=== PATIENT | female | born 1935 | race Caucasian/White ===

== ENCOUNTER → 2017-06-20 | Outpatient (CLI) | payer MEDICARE ==
--- NOTE | 2017-06-20 11:20 | KCIC ---
Bone mineral density exam History: Takes Fosamax and thyroid medication, takes calcium supplement, postmenopausal Comparison: None Findings: Bone mineral density examination utilizing DEXA was performed. Left hip bone mineral density of 0.867 g/cm2 corresponds with a T score -0.6, Z score 1.5. The bone mineral density of the lumbar spine was 1.307 g/cm2 which corresponds with a T-score of 2.4, Z score 5.1 By World [employer] on Osteoporosis criteria, a T score of 0 to-1 SD is considered to be within normal limits. A T score of -1 to -2.5 SD is considered osteopenia. A T score less than -2.5 SD is considered osteoporosis Impression: 1. There is normal bone density of the lumbar spine and the left hip. Electronically signed by: Murali Voss MD (06/20/2017 11:16 AM) [facility]
== END | disposition home or self-care (01) ==
LOC: KCIC DEXA 09:25
PROVIDERS: ATTEND Family Medicine
DX: M85.89 Other specified disorders of bone density and structure, multiple sites (principal)
CPT/HCPCS: 77080

== ENCOUNTER → 2017-11-16 | Outpatient (CLI) | payer OTHER, MEDICARE | END | disposition home or self-care (01) | LOC: KCIC US 07:45 | DX: K82.8 Other specified diseases of gallbladder (principal); I70.0 Atherosclerosis of aorta; K57.92 Diverticulitis of intestine, part unspecified, without perforation or abscess without bleeding; R14.0 Abdominal distension (gaseous) | CPT/HCPCS: 76700 ==

== ENCOUNTER → 2018-01-21 | Outpatient (CLI) | payer OTHER, MEDICARE | END | disposition home or self-care (01) | LOC: ECHO 08:56 | DX: I11.9 Hypertensive heart disease without heart failure (principal); I27.20 Pulmonary hypertension, unspecified; I36.1 Nonrheumatic tricuspid (valve) insufficiency | CPT/HCPCS: 93306 ==

== ENCOUNTER → 2018-07-29 | Outpatient (CLI) | payer OTHER ==
--- NOTE | 2018-07-29 15:56 | KCIC ---
Left knee, 3 views, 07/29/2018: HISTORY: Knee pain There is minimal marginal spurring at the knee joint and at the patellofemoral articulation. No fracture or dislocation is identified. No large joint effusion is evident. IMPRESSION: 1. Mild degenerative change. 2. No acute bony abnormality is detected. Electronically signed by: Vinicius Ennis MD (07/29/2018 3:53 PM) [facility]
== END | disposition home or self-care (01) ==
LOC: KCIC 14:22
PROVIDERS: ATTEND Family Medicine
DX: M17.12 Unilateral primary osteoarthritis, left knee (principal); M76.892 Other specified enthesopathies of left lower limb, excluding foot
CPT/HCPCS: 73562

== ENCOUNTER → 2020-02-23 | Outpatient (CLI) | payer MEDICARE ==
--- NOTE | 2020-02-23 12:45 | CARD ---
MR#: [id number] Date of Study: 02/23/2020 Ordering Physician: GLORIA JENKINS, Referring Physician: GLORIA JENKINS Tech: Evy Schroeder RDCS APPROVED REPORT EXAM: Two-dimensional and M-mode echocardiogram with Doppler and color Doppler. Other Information Quality : Good Rhythm : PVC's INDICATION Hypertension/HCVD 2D DIMENSIONS RVDd3.0 (2.9-3.5cm)Left Atrium(2D)3.2 (1.6-4.0cm) IVSd0.8 (0.7-1.1cm)Aortic Root(2D)2.5 (2.0-3.7cm) LVDd4.4 (3.9-5.9cm)LVOT Diameter2.0 (1.8-2.4cm) PWd0.8 (0.7-1.1cm)LVDs2.4 (2.5-4.0cm) FS (%) 30.0 %SV67.1 ml LVEF(%)60.0 (>50%) Aortic Valve AoV Peak Esteban.173.5cm/sAoV VTI32.5cm AO Peak GR.12.0mmHgLVOT Peak Esteban.128.9cm/s AO Mean GR.6mmHgAVA (VMAX)2.26cm2 MERY (VTI)2.60cm2 Mitral Valve MV E Akyfvtnf43.4cm/sMV DECEL RDFI523ji MV A Lzujihml127.1cm/sE/A Ratio0.8 Tricuspid Valve TR P. Ekiytudo240lo/sRAP JEASKYFC4szLy TR Peak Gr.14kaWxKZMI70daZu Pulmonary Vein S1 Jifgcvcs00.5cm/sD2 Xdgvrhov94.3cm/s LEFT VENTRICLE The left ventricle is normal size. There is normal left ventricular wall thickness. The left ventricu lar systolic function is normal. The Ejection Fraction is 55-60%. There is normal LV segmental wall m otion. Transmitral Doppler flow pattern is Grade I-abnormal relaxation pattern. RIGHT VENTRICLE The right ventricle is normal size. The right ventricular systolic function is normal. ATRIA The left atrium size is normal. The right atrium size is normal. The interatrial septum is intact wit h no evidence for an atrial septal defect or patent foramen ovale as noted on 2-D or Doppler imaging. AORTIC VALVE The aortic valve is calcified but opens well. Doppler and Color Flow revealed mild aortic regurgitati on. There is no significant aortic valvular stenosis. MITRAL VALVE The mitral valve is calcified but opens well. There is no evidence of mitral valve prolapse. There is no mitral valve stenosis. Doppler and Color-flow revealed mild mitral regurgitation. TRICUSPID VALVE The tricuspid valve is normal in structure and function. Doppler and Color Flow revealed mild tricusp id regurgitation. There is mild pulmonary hypertension. The PA pressure was estimated at 36 mmHg. The re is no tricuspid valve stenosis. PULMONIC VALVE The pulmonic valve is not well visualized. Doppler and Color Flow revealed mild pulmonic valvular reg urgitation. There is no pulmonic valvular stenosis. GREAT VESSELS The aortic root is normal in size. The ascending aorta is normal in size. The IVC is normal in size a nd collapses >50% with inspiration. PERICARDIAL EFFUSION There is no evidence of significant pericardial effusion. Critical Notification Critical Value: No <Conclusion> The left ventricular systolic function is normal. The Ejection Fraction is 55-60%. There is normal LV segmental wall motion. Transmitral Doppler flow pattern is Grade I-abnormal relaxation pattern. Mild aortic regurgitation. Mild mitral regurgitation. Mild tricuspid regurgitation. There is mild pulmonary hypertension. The PA pressure was estimated at 36 mmHg. There is no evidence of significant pericardial effusion. Signed by : Gloria Jenkins, Electronically Approved : 02/23/2020 12:45:09
== END | disposition home or self-care (01) ==
LOC: ECHO 09:42
PROVIDERS: ATTEND Internal Medicine Cardiovascular Disease
DX: I08.3 Combined rheumatic disorders of mitral, aortic and tricuspid valves (principal); I27.20 Pulmonary hypertension, unspecified; I10 Essential (primary) hypertension
CPT/HCPCS: 93306

== ENCOUNTER → 2020-03-29 | Outpatient (CLI) | payer MEDICARE ==
[~2020-03-29] MED LIST: REGADENOSON 0.4 MG/5 ML DISP.SYRIN. IV ONE
--- NOTE | 2020-03-29 13:31 | RAD ---
MR#: [id number] Date of Study: 03/29/2020 Ordering Physician: GLORIA JENKINS, Referring Physician: ADRYAN CODY Tech: RT Mallory (R) (N) APPROVED REPORT Test Type: Pharmacological Stress Nurse/Tech: KERI Owusu Test Indications: Dyspnea on Exertion Cardiac History: HTN, See Electronic Medical Record Medications: See Electronic Medical Record Medical History: See Electronic Medical Record Resting ECG: SR w/BBB Resting Heart Rate: 65 bpm Resting Blood Pressure: 132/63mmHg Pretest Chest Pain: No chest pain Nurse/Tech Notes S1,S2, lungs CTA, denied chest pain/SOA at this time. Consent: The procedure was explained to the patient in lay terms. Informed consent was witnessed. Neil eout was entered into [employer]. History and Stress Test performed by ADRYAN BrooksTCCynthia, ARRT (R) (N) Pharm. Details Pharmacologic stress testing was performed using 0.4mg per 5ml of regadenoson given intravenously ove r 7-10 seconds. Stress Symptoms Pt c/o "slight pressure" during exam, symptoms resolved after about a minute. VSS POST EXERCISE Reason for Termination: Infusion complete Max HR: 100 bpm Max Blood Pressure: 137/60mmHg Blood Pressure response to exercise: Normal blood pressure response during stress. Heart Rate response to exercise: Normal heart rate response during stress Chest Pain: No. INTERPRETATION Stress EKG Conclusion: The resting EKG shows a sinus rhythm with a right bundle branch block. The stress EKG shows no significant changes from baseline. No EKG evidence of stress-induced ischemia. Imaging Protocol IMAGE PROTOCOL: Rest Tc-99m/stress Tc-99m 1 day Rest: Stress: Viability: Radiopharm.Tc99m PmypmcmciKv06m Sestamibi Dose10.7mCi 32mCi Duration 15min. 10min. Img Date 03/29/2020 03/29/2020 Inj-Img Jnny60mjx. 60min. Rest Admin Site:IV - Left AntecubitalAdministrator:RT Ed TejadaR)(N) Stress Admin Site: IV - Left AntecubitalAdministrator: Tawnya Davis, NMTCB, ARRT (R)(N) STRESS DATA End Diast. Vol.52.0mlAv. Heart Rate78.0bpm End Syst. Vol.3.0mlCO Index BSA0.0L/min Myocardial Mass97.0gEject. Kqmgoyyy91.0% Stress Rates Pk. Fill Rate3.37EDV/secLVtime Pk. Fill 102.65msec Pk. Empty Rate4.66ESV/secLVtime Pk. Rkszt456.65msec 10/24 Pk. Fill2.34EDV/sec Stress Scores Regional WT0.00Summed WT0.00 Regional WM0.00Summed WM0.00 LV Perfusion The stress scans showed no significant defects. The rest scans showed no significant defects. Nuclear imaging shows no reversible ischemia or infarct. Wall Motion Left ventricular systolic function is normal with an ejection fraction of greater than 70%. LV Perf. Quant 17 Seg. SSS0.00 17 Seg. SRS1.00 17 Seg. SDS0.00 Stress Defect Extent (% LAD)0.00Rest Defect Extent (% LAD)2.50Rev. Defect Extent (% LAD)0.00 Stress Defect Extent (% LCX) 0.00Rest Defect Extent (% LCX)2.50Rev. Defect Extent (% LCX)0.00 Stress Defect Extent (% RCA)0.00Rest Defect Extent (% RCA)0.00Rev. Defect Extent (% RCA)0.00 Stress Defect Extent (% DARIEL)0.00Rest Defect Extent (% DARIEL)3.90Rev. Defect Extent (% DARIEL)0.00 Conclusion 1. No EKG evidence of stress-induced ischemia. 2. Nuclear imaging shows no reversible ischemia or infarct. 3. Normal left ventricular systolic function with an ejection fraction of greater than 70%. 4. Low risk test. Signed by : Billy Dowling MD Electronically Approved : 03/29/2020 13:30:35
== END | disposition home or self-care (01) ==
LOC: NM 09:06
PROVIDERS: ATTEND Internal Medicine Cardiovascular Disease
DX: R06.09 Other forms of dyspnea (principal)
CPT/HCPCS: 78452; 93017; A9500; J2785

== ENCOUNTER → 2020-04-26 | Outpatient (CLI) | payer MEDICARE ==
[~2020-04-26] MED LIST changes: +IOHEXOL 240 MG/ML 50ML VIAL. PO ONE; +IOHEXOL 300 MG/ML 100ML VIAL. IV ONE; -REGADENOSON 0.4 MG/5 ML DISP.SYRIN. IV ONE
--- NOTE | 2020-04-26 14:55 | KCIC ---
CT scan of the abdomen and pelvis with contrast 04/26/2020 CLINICAL HISTORY: Abdominal pain. TECHNIQUE: After the oral and intravenous administration of contrast, contiguous, 5 mm axial sections were obtained through the abdomen and pelvis. 67 cc Omnipaque 300 were administered intravenously during this examination. One or more of the following individualized dose reduction techniques were utilized for this study: 1. Automated exposure control. 2. Adjustment of the mA and/or kV according to patient size. 3. Use of iterative reconstruction technique. FINDINGS: Images through the lung bases demonstrate mild to moderate cardiomegaly. Minimal dependent subsegmental atelectasis is seen bilaterally. The liver, spleen, pancreas, adrenal glands and kidneys are within normal limits. Atherosclerotic calcification of the abdominal aorta is seen. The abdominal aorta tapers normally. The gallbladder is well-distended. No free fluid or free air is seen within the abdomen. Air and stool are seen throughout the colon. There is no evidence of bowel obstruction. The appendix is well-visualized and is within normal limits. Multiple diverticula are seen involving the descending and sigmoid colon. No inflammatory changes are seen in the adjacent fat. Images through pelvis demonstrate the urinary bladder to be contracted. Calcifications are seen within the pelvis consistent with phleboliths. An anastomosis is seen involving the sigmoid colon with the rectum. Minimal S-shaped curvature of the thoracolumbar spine is seen. Degenerative changes are seen involving lower thoracic and throughout the lumbar spine along with both hips. IMPRESSION: No acute abnormality is seen. Electronically signed by: Jin Abel MD (04/26/2020 2:52 PM) [id number]
== END | disposition home or self-care (01) ==
LOC: KCIC CT 08:48
PROVIDERS: ATTEND Family Medicine
DX: K57.30 Diverticulosis of large intestine without perforation or abscess without bleeding (principal); N28.89 Other specified disorders of kidney and ureter; K63.89 Other specified diseases of intestine; I51.7 Cardiomegaly; I70.0 Atherosclerosis of aorta; J98.11 Atelectasis; M43.8X5 Other specified deforming dorsopathies, thoracolumbar region; M47.895 Other spondylosis, thoracolumbar region; M16.0 Bilateral primary osteoarthritis of hip
CPT/HCPCS: 74177; 82565; Q9966; Q9967

== ENCOUNTER → 2021-04-06 | Outpatient (CLI) | payer MEDICARE ==
--- NOTE | 2021-04-06 15:36 | CARD ---
MR#: [id number] Date of Study: 04/06/2021 Ordering Physician: GLORIA JENKINS, Referring Physician: GLORIA JENKINS Tech: Jessica Luna TRINY APPROVED REPORT EXAM: Two-dimensional and M-mode echocardiogram with Doppler and color Doppler. Other Information Quality : AverageHR: 64bpm Rhythm : NSRNSR INDICATION Hypertension/HCVD RISK FACTORS Hypertension 2D DIMENSIONS RVDd3.5 (2.9-3.5cm)Left Atrium(2D)3.2 (1.6-4.0cm) IVSd1.0 (0.7-1.1cm)Aortic Root(2D)3.2 (2.0-3.7cm) LVDd3.6 (3.9-5.9cm)LVOT Diameter2.0 (1.8-2.4cm) PWd0.9 (0.7-1.1cm)LVDs1.9 (2.5-4.0cm) FS (%) 47.5 %SV42.2 ml Aortic Valve AoV Peak Esteban.164.3cm/sAoV VTI36.7cm AO Peak GR.10.8mmHgLVOT Peak Esteban.122.3cm/s AO Mean GR.5mmHgAVA (VMAX)2.30cm2 Mitral Valve MV E Khktyowx52.3cm/sMV DECEL XJKH362su MV A Ztqsrwha209.4cm/sE/A Ratio0.8 Pulmonary Valve PV Peak Vorftton987.5cm/s Tricuspid Valve TR P. Bvispahp386hf/sTR Peak Gr.23mmHg LEFT VENTRICLE The left ventricle is normal size. There is normal left ventricular wall thickness. The left ventricu lar systolic function is normal and the ejection fraction is within normal range. LV ejection fractio n is 55-60%. There is normal LV segmental wall motion. The left ventricular diastolic function and fi lling is normal for age. RIGHT VENTRICLE The right ventricle is normal size. There is normal right ventricular wall thickness. The right ventr icular systolic function is normal. ATRIA The left atrium is mildly dilated. The right atrium is mildly dilated. The interatrial septum is inta ct with no evidence for an atrial septal defect or patent foramen ovale as noted on 2-D or Doppler im aging. AORTIC VALVE The aortic valve is normal in structure and function. Doppler and Color Flow revealed trace aortic re gurgitation. There is no significant aortic valvular stenosis. MITRAL VALVE The mitral valve is normal in structure and function. There is no evidence of mitral valve prolapse. There is no mitral valve stenosis. Doppler and Color-flow revealed mild mitral regurgitation. TRICUSPID VALVE The tricuspid valve is normal in structure and function. Doppler and Color Flow revealed mild tricusp id regurgitation. Estimated PAP 23 mmHg. There is no tricuspid valve stenosis. PULMONIC VALVE The pulmonary valve is normal in structure and function. Doppler and Color Flow revealed trace to mil d pulmonic valvular regurgitation. GREAT VESSELS The aortic root is normal in size. The ascending aorta is normal in size. The IVC is normal in size a nd collapses >50% with inspiration. PERICARDIAL EFFUSION There is no evidence of significant pericardial effusion. Critical Notification Critical Value: No <Conclusion> The left ventricle is normal size. The left ventricular systolic function is normal and the ejection fraction is within normal range. LV ejection fraction is 55-60%. Doppler and Color Flow revealed trace aortic regurgitation. There is no significant aortic valvular stenosis. Doppler and Color-flow revealed mild mitral regurgitation. Doppler and Color Flow revealed mild tricuspid regurgitation. Estimated PAP 23 mmHg. Signed by : Billy Dowling MD Electronically Approved : 04/06/2021 15:35:19
== END ==
LOC: ECHO 13:47
PROVIDERS: ATTEND Internal Medicine Cardiovascular Disease
DX: I08.8 Other rheumatic multiple valve diseases (principal); I10 Essential (primary) hypertension
CPT/HCPCS: 93306